=== PATIENT | female | born 1955 | race Caucasian/White ===

== ENCOUNTER 2024-09-13 13:53 | Emergency (ER) | payer OTHER, SELFPAY ==
[2024-09-13 13:56] VITALS: BP 144/78
[2024-09-13 14:21] LABS: Hematocrit 42.6 % (37.0-47.0); Hemoglobin 14.8 g/dL (12.0-16.0); Mean Corp Hgb Conc. 34.7 g/dL (33.0-37.0); Mean Corpuscular Volume 96.2 fL (81.0-99.0); Nucleated Red Blood Cells % 0 %; Platelet Count 227 10^3/uL (130-400); Red Cell Dist. Width 12.5 % (11.5-14.5)
[2024-09-13 14:36] LABS: ALT (SGPT) 28 U/L (0-35); AST (SGOT) 35 U/L (14-36); Albumin 4.7 g/dl (3.5-5.0); Alkaline Phosphatase 76 U/L (38-126); Blood Urea Nitrogen 19 mg/dl (7-17); Calcium 9.5 mg/dl (8.4-10.2); Carbon Dioxide 28 mmol/L (22-30); Chloride 108 mmol/L (98-107); Glucose 100 mg/dl (70-99); Potassium 4.7 mmol/L (3.5-5.1); Sodium 137 mmol/L (135-145); Total Protein 7.3 g/dl (6.3-8.2); eGFR > 60.00
[2024-09-13 14:47] LABS: Troponin I < 0.012 ng/ml
--- NOTE | 2024-09-13 18:11 | ED.GENMED ---
History of Present Illness
General
Chief Complaint: Chest Pain
Source: patient
Time Seen by Provider: 09/13/24 17:53
History of Present Illness
History of Present Illness:
69-year-old female presents to the emergency room concerned about chest pain. Patient began having chest pain about 6 days ago. She was in the waiting area of the [employer] [employer] [facility] when the pain began. Her was having a heart attack and was in the
[facility] having a procedure. Pain has been present since then. It is located on the left side and described as sharp. Radiates to her neck. No shortness of breath per se. She has had some nausea but no vomiting. Patient has been performing
daily activities.
Phy Exam
Physical Exam
Physical Exam:
General: Awake, Alert, Oriented X3. No acute distress.
Vitals: Moderately hypertensive
Head: Atraumatic
Eyes: Pupils equal, EOMI
Throat: Airway intact, no exudates
Neck: Trachea midline
Lungs: Clear and equal b/l
Heart: Regular rate, no murmurs
Abd: Soft, Nontender, No pulsatile mass
Neuro: Nonfocal
Skin: Warm, dry, no rash
Extremities: pulses equal b/l, no edema
Scores
Heart Score for Chest Pain Patients
STEMI patient?: No
History: Slightly or Non-Suspicious
ECG: Nonspecific Repolarization
Age: >45 - <65 years
Risk Factors: 1 or 2 Risk Factors
Troponin: </= Normal Limit
Heart Score for Chest Pain Patients: 3
Heart Score Risk: 2.5% MACE over next 6 weeks
Course
Orders/Labs/Results
Orders:
Orders
09/13/24 13:54
Electrocardiogram (*1) Urgent
Reason for Study: Chest Pain
EKG- Treatment ONCE
09/13/24 14:06
Complete Blood Count/With Diff Urgent
Comprehensive Metabolic Panel Urgent
Troponin I Urgent
09/13/24 18:08
Iohexol [Omnipaque] See Protocol PO NOW STA
09/13/24 19:11
CT Chest Angio W/wo Iv Contras Urgent
Comment:
Reason For Exam: chest pain radiating to neck, htn
Abnormal Lab Results
09/13/24
14:06
MCH 33.4 H pg
(27.0-31.0)
Absolute Monos (auto) 0.7 H 10^3/uL
(0.1-0.6)
Chloride 108 H mmol/L
(98-107)
BUN 19 H mg/dl
(7-17)
Glucose 100 H mg/dl
(70-99)
09/13/24 14:06
09/13/24 14:06
Vital Signs
Initial and Last Documented VS:
Initial Vital Signs
Temp Pulse Resp BP Pulse Ox
98.1 F 69 16 144/78 98
09/13/24 13:56 09/13/24 13:56 09/13/24 13:56 09/13/24 13:56 09/13/24 13:56
Last Documented Vital Signs
Temp Pulse Resp BP Pulse Ox
98.1 F 69 16 149/79 98
09/13/24 13:56 09/13/24 13:56 09/13/24 13:56 09/13/24 21:08 09/13/24 18:14
MDM/Problems Addressed
Differential Diagnosis Includes:
Coronary syndrome, PE, dissection, stress
MDM/Problems Addressed:
Patient presents with chest pain. Pains been present for several days. It does not go away though it does wax and wane. Patient describes the pain rating up into her neck. Labs here showed normal troponin. Given the pains been present for a
couple to several days single troponin is adequate. CT of the chest performed given the radiation of pain to the neck. No dissection or aneurysm noted. No other acute abnormalities noted. Patient stable for discharge home outpatient follow-up.
Chronic conditions affecting care: HTN
*Radiology
Radiology exam reviewed: radiology read reviewed
*Pulse Oximetry
SaO2: 98
Oxygen Mode of Delivery: Room air
Patient hypoxic: no
*EKG
Interpreted by ED Provider?: Yes
Heart Rate: 66
Rate: normal
Rhythm: sinus
[place]: normal axis
Interval: normal interval
Ischemia: no ischemia
*I[employer] Support Engineer Interpretation
Rate: normal
Interpretation: normal
Heart Rate: 66
Rhythm: sinus
*Critical Care Note
Total Time (30-74mins, 75-104mins- exclusive of procedures): Not Applicable
ED Attending Note
-
Portions of this chart may have been created with voice recognition software.� Occasional wrong word or��sound alike� substitutions may have occurred due to the inherent limitations of voice recognition software.
Discharge Plan
Departure
Patient Disposition: Home (Routine Discharge)
Date of Disposition: 09/13/24
Time of Disposition: 20:58
Patient with high blood pressure during this ER visit?: No
Condition: Good
Discharge Problem:
Chest pain
Instructions: Chest Pain CBC Follow Up, BLOOD PRESSURE
Prescriptions:
No Action
atorvastatin 20 mg Tablet
20 mg PO HS
ibandronate 150 mg Tablet
150 mg PO QMONTH
Rx Instructions:
Next dose 12/01
Xarelto 20 mg Tablet
20 mg PO QPM
cholecalciferol (vitamin D3) [Vitamin D3] 125 mcg (5,000 unit) Tablet
125 mcg PO DAILY
vitamin E acetate 800 unit Capsule
800 unit PO DAILY
magnesium glycinate 100 mg Tablet
100 mg PO DAILY
omega 9-dcj-upp-fish oil [Fish Oil] 1,000 mg (120 mg-180 mg) Capsule
2 cap PO DAILY
Referrals:
Tristan Robison MD [Family Provider, Internal Medicine]
Interventions
Interventions:
*Risk Screen - Suicide Last Done: 09/13/24 13:56
*General Assessment Last Done: 09/13/24 20:00
*Neglect/Abuse Screening Last Done: 09/13/24 13:56
*ED- Fall Risk Assessment Last Done: 09/13/24 20:00
*Nursing Disposition Last Done: 09/13/24 21:43
ED- Cardiac Assessment Last Done: 09/13/24 20:41
Discharge Date and Time
Discharge Date/Time: 09/13/24 21:43
Print Language: BULGARIAN
[2024-09-13] MEDS: OMNIPAQUE 50 ML PO (18:22)
[2024-09-13 21:08] VITALS: BP 149/79
== END 2024-09-13 21:43 | disposition home or self-care (01) ==
LOC: EMR 13:53
PROVIDERS: Emergency Medicine; EMERGENCY PHYSICIAN Emergency Medicine; FAMILY PHYSICIAN Internal Medicine
DX: R07.9 Chest pain, unspecified (principal); I10 Essential (primary) hypertension
CPT/HCPCS: 99284; 71275; 80053; 84484; 85025; 93005; Q9967